=== PATIENT | male | born 1990 | race Caucasian/White ===

== ENCOUNTER 2018-03-20 20:21 | Emergency (ER) | payer SELFPAY ==
[~2018-03-20] VITALS: Ht 154.9 cm; Wt 60.5 kg
[2018-03-20] MEDS ORDERED: SODIUM CHLORIDE 0.9% 1,000 ML IV ONE ×3 (22:56)
[2018-03-20 23:16] LABS: BASOPHILS % 0.4 % (0.0-2.0); EOSINOPHILS % 1.7 % (0.0-5.0); HEMATOCRIT. 40.6 % (42.0-52.0); HEMOGLOBIN. 14.2 g/dL (14.0-18.0); LYMPHOCYTES % 45.4 % (20.0-50.0); MEAN CORPUSCULAR HEMOGLOBIN 33.4 pg (28.0-32.0); MEAN CORPUSCULAR VOLUME 95.5 fL (80.0-94.0); MEAN PLATELET VOLUME 9.6 fl (7.4-10.4); MONOCYTES % 7.6 % (2.0-8.0); NEUTROPHILS % 44.9 % (40.0-76.0); PLATELET 151 x1000/uL (130-400); RED BLOOD CELL COUNT 4.25 mill/uL (4.7-6.1); RED CELL DISTRIBUTION WIDTH 12.8 % (11.6-14.6)
[2018-03-20 23:43] LABS: CHLORIDE 91 mEq/L (98-107)
[2018-03-20 23:52] LABS: BETA HYDROXYBUTYRATE 2.5 mMol/L (0.0-0.3)
[2018-03-21 01:45] LABS: CLARITY URINE CLEAR (CLEAR); COLOR URINE YELLOW (YELLOW); KETONES URINE 1+ (NEGATIVE); LEUKOCYTE ESTERASE URINE NEGATIVE (NEGATIVE); NITRITE URINE NEGATIVE (NEGATIVE); OCCULT BLOOD URINE NEGATIVE (NEGATIVE); PROTEIN URINE NEGATIVE (NEGATIVE); SPECIFIC GRAVITY URINE 1.025 (1.005-1.030); UROBILINOGEN URINE 0.2 E.U./dL (0.2-1.0)
[2018-03-21 03:00] VITALS: BP 119/70
== END 2018-03-21 03:01 | disposition home or self-care (01) ==
LOC: ER 20:21
DX: E11.65 Type 2 diabetes mellitus with hyperglycemia (principal); R21 Rash and other nonspecific skin eruption
CPT/HCPCS: 36415; 71045; 80053; 81003; 82010; 82962; 83690; 84484; 85025; 93005; 96360; 96361; 99285; J7030; Z7610

== ENCOUNTER 2018-09-23 13:48 | Emergency (ER) | payer SELFPAY ==
[~2018-09-23] VITALS: Ht 162.6 cm; Wt 69.0 kg
[2018-09-23 18:22] VITALS: BP 134/76
== END 2018-09-23 19:42 | disposition left against medical advice (07) ==
LOC: ER 14:40
DX: Z53.21 Procedure and treatment not carried out due to patient leaving prior to being seen by health care provider (principal)